=== PATIENT | female | born 1935 | race Caucasian/White ===

== ENCOUNTER 2021-05-11 10:03 | Emergency (ER) | payer MEDICARE ==
[2021-05-11] MEDS ORDERED: Oxymetazoline 0.05% Nasal Spray 30 ML Bottle NAS ONE (10:11)
--- NOTE | 2021-05-11 23:06 | EDM.PDOC ---
ED HPI GENERAL MEDICAL PROBLEM - General Chief Complaint: ENT Problem Stated Complaint: NOSE BLEED Time Seen by Provider: 05/11/21 10:11 Source of Information: Reports: Patient History Limitations: Reports: No Limitations - History of Present Illness INITIAL COMMENTS - FREE TEXT/NARRATIVE: Pt. presents to ER with complaints of epistaxis that started 30 min prior to arrival in ER. She states that for the most part the bleeding was controlled with direct pressure. Denies any trauma to area. No lightheadedness. Pt. is on plavix but is not anticoagulated. Onset: Today Onset Date: 05/11/21 Onset Time: 11:15 Location: Reports: Face - Related Data Allergies Allergy/AdvReac Type Severity Reaction Status Date / Time egg Allergy Nausea and Verified 06/03/17 22:30 Vomiting nitrofurantoin Allergy Cannot Verified 06/03/17 22:30 [From Macrobid] Remember nitrofurantoin Allergy Cannot Verified 06/03/17 22:30 macrocrystalline Remember [From Macrobid] [id number]-[id number] Reductase AdvReac Leg Cramps Verified 06/03/17 22:30 Inhibitor [Tmlrisr-Rau-Sex Reductase Inhibitor] Home Meds: Home Meds Aspirin [Halfprin] 81 mg PO DAILY 05/28/14 [History] Dextran 70/Hypromellose [Artificial Tears Eye Drops] 1 drop EYEBOTH BEDTIME 05/28/14 [History] Fish Oil/Butler-3 Fatty Acids [Fish Oil 1,000 MG] 1 cap PO DAILY 05/28/14 [History] Hydrochlorothiazide/Losartan [Hyzaar 100-25 MG] 1 tab PO DAILY 05/28/14 [History] Insulin Aspart [NovoLOG] 10 units SQ KAIA 05/28/14 [History] Insulin Aspart [NovoLOG] 15 units SQ QPM 05/28/14 [History] Insulin Glargine,Hum.Rec.Anlog [Lantus Solostar] 20 units SQ DAILY 05/28/14 [History] Lansoprazole [Prevacid] 15 mg PO DAILY 05/28/14 [History] Multivitamin with Minerals [Multiple Vitamin] 1 tab PO DAILY 05/28/14 [History] Sertraline [Zoloft] 50 mg PO DAILY 05/28/14 [History] Simvastatin [Zocor] 10 mg PO BEDTIME 11/19/14 [History] Acetaminophen [Pain & Fever] 500 mg PO BID 06/03/17 [History] Diclofenac Sodium [Voltaren 1% Gel] 4 gm TOP QID 06/03/17 [History] dilTIAZem HCL [Cardizem Cd] 300 mg PO DAILY 06/03/17 [History] Past Medical History Cardiovascular History: Reports: High Cholesterol, Hypertension Psychiatric History: Reports: Depression Endocrine/Metabolic History: Reports: Diabetes, Type I Social & Family History - Family History Family Medical History: No Pertinent Family History - Tobacco Use Tobacco Use Status *Q: Never Tobacco User - Recreational Drug Use Recreational Drug Use: No ED ROS GENERAL - Review of Systems Review Of Systems: See Below Constitutional: Reports: No Symptoms HEENT: Reports: Nosebleed Respiratory: Reports: No Symptoms Cardiovascular: Reports: No Symptoms Endocrine: Reports: No Symptoms GI/Abdominal: Reports: No Symptoms : Reports: No Symptoms Musculoskeletal: Reports: No Symptoms Skin: Reports: No Symptoms Neurological: Reports: No Symptoms Psychiatric: Reports: No Symptoms Hematologic/Lymphatic: Reports: No Symptoms Immunologic: Reports: No Symptoms ED EXAM, GENERAL - Physical Exam Exam: See Below Exam Limited By: No Limitations General Appearance: Alert, WD/WN, No Apparent Distress Eye Exam: Bilateral Eye: EOMI, PERRL Nose: Other (active bleeding from R nare) Throat/Mouth: Normal Inspection, Normal Lips, Normal Teeth, Normal Gums, Normal Oropharynx, Normal Voice, No Airway Compromise Course - Orders/Labs/Meds Meds: Medications Discontinued Medications Generic Name Dose Route Start Last Admin Trade Name Freq PRN Reason Stop Dose Admin Oxymetazoline HCl 1 ml 05/11/21 10:11 05/11/21 12:07 Oxymetazoline 0.05% Nasal [place] 30 Ml Bottle DAVE 05/11/21 10:12 3 spray ONETIME ONE Administration - Re-Assessments/Exams Free Text/Narrative Re-Assessment/Exam: Afrin instilled in L nare. Area of active bleeding identified and was cauterized with silver nitrate. Nare was packed with 1/4 in. gauze packing. Pt. observed for an hour and did not have any more active bleeding. Pt. wished to be discharged. Departure - Departure Time of Disposition: 12:15 Disposition: Home, Self-Care 01 Clinical Impression: Epistaxis - Discharge Information Instructions: Nosebleed, Adult, [id number] Referrals: PCP,Not In Area [Primary Care Provider] - Forms: ED Department Discharge Additional Instructions: Remove packing from nose on . It will be normal to experience some oozing from the packing, since the packing was saturated with nasal spray. Return if you notice heavy bleeding, or if you feel bleeding in the back of your throat that doesn't stop. Sepsis Event Note (ED) - Evaluation Sepsis Screening Result: No Definite Risk - Problem List Review Problem List Initiated/Reviewed/Updated: Yes - Assessment/Plan Plan: Pt. was discharged. Packing will be removed on . Return if fever, chills, or recurrent bleeding. Call if any questions.
== END 2021-05-11 11:59 | disposition home or self-care (01) ==
LOC: VM.ED 10:03
DX: R04.0 Epistaxis (principal); E78.00 Pure hypercholesterolemia, unspecified; I10 Essential (primary) hypertension; E10.9 Type 1 diabetes mellitus without complications; Z79.899 Other long term (current) drug therapy; Z79.82 Long term (current) use of aspirin; Z91.012 Allergy to eggs; Z88.1 Allergy status to other antibiotic agents; Z88.8 Allergy status to other drugs, medicaments and biological substances
CPT/HCPCS: 30901; 30903; 99283; 99283-25; A9270-GY

== ENCOUNTER 2024-04-30 11:59 | Emergency (ER) | payer MEDICARE | END 2024-04-30 16:41 | disposition home or self-care (01) | LOC: VM.ED 11:59 | DX: S82.832A Other fracture of upper and lower end of left fibula, initial encounter for closed fracture (principal); I10 Essential (primary) hypertension; E10.9 Type 1 diabetes mellitus without complications; Z79.82 Long term (current) use of aspirin; Z79.4 Long term (current) use of insulin; Z79.899 Other long term (current) drug therapy; Z88.9 Allergy status to unspecified drugs, medicaments and biological substances; Z91.012 Allergy to eggs; Z88.1 Allergy status to other antibiotic agents; Z88.8 Allergy status to other drugs, medicaments and biological substances; W19.XXXA Unspecified fall, initial encounter | CPT/HCPCS: 73610-LT; 99283; 99284 ==

== ENCOUNTER 2024-05-28 23:41 | Emergency (ER) | payer MEDICARE ==
[2024-05-29 00:18] LABS: BASOPHILS PERCENT AUTO 0.2 % (0.2-1.2); EOSINOPHILS ABSOLUTE AUTO 0.2 x10^3/uL (0.0-0.5); HEMATOCRIT 23.9 % (33.0-47.0); IMMATURE GRAN ABSOLUTE AUTO 0.01 x10^3/uL (0.00-0.07); LYMPHOCYTES ABSOLUTE AUTO 7.5 x10^3/uL (1.0-4.8); LYMPHOCYTES PERCENT AUTO 64.3 % (25.0-50.0); MEAN CORPUSCULAR HEMOGLOBIN 19.3 pg (26.0-32.0); MEAN CORPUSCULAR HGB CONC 27.6 g/dL (32.0-36.0); MEAN CORPUSCULAR VOLUME 69.9 fL (78.0-93.0); MONOCYTES ABSOLUTE AUTO 0.7 x10^3/uL (0.0-0.8); MONOCYTES PERCENT AUTO 5.6 % (2.0-11.0); NEUTROPHILS ABSOLUTE AUTO 3.2 x10^3/uL (1.8-7.7); NEUTROPHILS PERCENT AUTO 27.8 % (50.0-80.0); PLATELET COUNT,PLT 317 x10^3/uL (130-400); RED BLOOD CELL COUNT 3.42 x10^6/uL (4.00-5.50)
[2024-05-29 00:21] LABS: BLOOD UREA NITROGEN,BUN 13 mg/dL (7-18); CALCIUM 9.3 mg/dL (8.5-10.1); CARBON DIOXIDE,CO2 30 mmol/L (21-32); CHLORIDE,CL 102 mmol/L (98-107); CREATININE 1.1 mg/dL (0.55-1.02); GLUCOSE RANDOM 109 mg/dL (70-99); SODIUM,NA 138 mmol/L (136-145)
[2024-05-29 00:22] LABS: HEMOGLOBIN 6.6 g/dL (12.0-16.0)
[2024-05-29 00:23] LABS: WHITE BLOOD CELL COUNT,WBC 11.6 x10^3/uL (4.0-10.0)
[2024-05-29 00:26] LABS: ESTIMATED GFR 48 mL/min (>=60)
== END 2024-05-29 01:15 ==
LOC: VM.ED 23:41
DX: D64.9 Anemia, unspecified (principal); I10 Essential (primary) hypertension; E10.9 Type 1 diabetes mellitus without complications; Z79.82 Long term (current) use of aspirin; Z79.1 Long term (current) use of non-steroidal anti-inflammatories (NSAID); Z79.4 Long term (current) use of insulin; Z79.899 Other long term (current) drug therapy; Z88.8 Allergy status to other drugs, medicaments and biological substances; Z91.012 Allergy to eggs
CPT/HCPCS: 36415; 80048; 85025; 86850; 86900; 86901; 99283; 99284

== ENCOUNTER 2024-09-28 10:05 | Inpatient (IN) | payer MEDICARE ==
[2024-09-28] MEDS: Labetalol 20 MG/4 ML Syringe IVPUSH ONE ×3 (10:35→21:56)
[2024-09-28 10:36] LABS: BASOPHILS PERCENT AUTO 0.1 % (0.2-1.2); EOSINOPHILS ABSOLUTE AUTO 0.1 x10^3/uL (0.0-0.5); EOSINOPHILS PERCENT AUTO 0.4 % (0.0-4.0); HEMATOCRIT 41.4 % (33.0-47.0); HEMOGLOBIN 13.1 g/dL (12.0-16.0); IMMATURE GRAN ABSOLUTE AUTO 0.01 x10^3/uL (0.00-0.07); LYMPHOCYTES ABSOLUTE AUTO 3.4 x10^3/uL (1.0-4.8); LYMPHOCYTES PERCENT AUTO 27.6 % (25.0-50.0); MEAN CORPUSCULAR HEMOGLOBIN 28.4 pg (26.0-32.0); MEAN CORPUSCULAR HGB CONC 31.6 g/dL (32.0-36.0); MEAN CORPUSCULAR VOLUME 89.8 fL (78.0-93.0); MONOCYTES ABSOLUTE AUTO 0.4 x10^3/uL (0.0-0.8); MONOCYTES PERCENT AUTO 3.4 % (2.0-11.0); NEUTROPHILS ABSOLUTE AUTO 8.4 x10^3/uL (1.8-7.7); NEUTROPHILS PERCENT AUTO 68.4 % (50.0-80.0); PLATELET COUNT,PLT 165 x10^3/uL (130-400); RED BLOOD CELL COUNT 4.61 x10^6/uL (4.00-5.50); WHITE BLOOD CELL COUNT,WBC 12.3 x10^3/uL (4.0-10.0)
[2024-09-28] MEDS ORDERED: Ondansetron 4 MG/2 ML SDV IVPUSH PRN ×2 (10:45→12:23)
[2024-09-28 10:48] LABS: PROTHROMBIN TIME 10.6 SEC (9.6-12.0); PTT,PARTIAL THROMBOPLSTIN TIME 23.6 SEC (23.5-33.2)
[2024-09-28] MEDS: LORazepam 2 MG/ML SDV IVPUSH ONE (10:49)
[2024-09-28] MEDS: Ondansetron 4 MG/2 ML SDV ONE (10:49)
[2024-09-28] MEDS: Morphine 2 MG/ML SYRINGE IVPUSH ONE ×2 (10:50→11:26)
[2024-09-28 10:53] LABS: ALANINE AMINOTRANSFERASE,ALT 25 U/L (14-59); ALBUMIN 3.3 g/dL (3.4-5.0); ALKALINE PHOSPHATASE 127 U/L (46-116); ASPARTATE AMNIOTRANSFERASE,AST 26 U/L (15-37); BILIRUBIN TOTAL 0.4 mg/dL (0.2-1.0); BLOOD UREA NITROGEN,BUN 14 mg/dL (7-18); CALCIUM 9.4 mg/dL (8.5-10.1); CARBON DIOXIDE,CO2 30 mmol/L (21-32); CHLORIDE,CL 101 mmol/L (98-107); CREATININE 0.8 mg/dL (0.55-1.02); GLUCOSE RANDOM 173 mg/dL (70-99); LACTIC ACID 1.5 mmol/L (0.4-2.0); LIPASE 24 U/L (19-71); POTASSIUM,K 3.9 mmol/L (3.5-5.1); SODIUM,NA 139 mmol/L (136-145)
[2024-09-28 10:55] LABS: ANION GAP 11.9 mmol/L (5-15); ESTIMATED GFR 71 mL/min (>=60)
[2024-09-28] MEDS ORDERED: Hypromellose 0.3% Ophth Soln 15 ML Bottle EYEBOTH PRN (12:35)
[2024-09-28] MEDS: Morphine 2 MG/ML SYRINGE IVPUSH PRN (13:37)
[2024-09-28] MEDS: Sodium Chloride 0.9% 10 ML Syringe FLUSH PRN (20:01)
[2024-09-28] MEDS: Ondansetron 8 MG in Sodium Chloride 0.9% 100 ML IV ONE (21:55)
[2024-09-28] MEDS: Tranexamic Acid 1,000 MG in Sodium Chloride 0.9% 100 ML IV ONE (21:56)
[2024-09-29] MEDS: LORazepam 2 MG/ML SDV IV PRN (04:18)
[2024-09-30] MEDS: Glycopyrrolate 0.2 MG/ML 2 ML SDV IVPUSH PRN (05:48)
[2024-09-30] MEDS: Acetaminophen 650 MG Supp RECTAL PRN (05:54)
[2024-09-30] MEDS: Morphine 4 MG/ML Syringe IVPUSH SCH (14:19)
[2024-10-01] MEDS: Atropine 1% Ophth Soln 5 ML Bottle SL PRN (08:01)
== END 2024-10-01 09:20 | disposition expired | DRG 951 ==
LOC: VM.ED 10:05 → VM.MS 11:15
PROVIDERS: ADMIT Nurse Practitioner Family; ATTEND Nurse Practitioner Family
PROC: 5A0935A Assistance with Respiratory Ventilation, Less than 24 Consecutive Hours, High Flow/Velocity Cannula (ICD-10-PCS; principal; 2024-09-30)
DX: Z51.5 Encounter for palliative care (principal); I10 Essential (primary) hypertension; E10.9 Type 1 diabetes mellitus without complications; I61.9 Nontraumatic intracerebral hemorrhage, unspecified; Z66 Do not resuscitate; Z79.1 Long term (current) use of non-steroidal anti-inflammatories (NSAID); E78.00 Pure hypercholesterolemia, unspecified; F32.A Depression, unspecified; Z91.012 Allergy to eggs; K21.9 Gastro-esophageal reflux disease without esophagitis; E11.40 Type 2 diabetes mellitus with diabetic neuropathy, unspecified; I11.0 Hypertensive heart disease with heart failure; I50.9 Heart failure, unspecified; R01.1 Cardiac murmur, unspecified; Z88.8 Allergy status to other drugs, medicaments and biological substances; Z79.82 Long term (current) use of aspirin; Z79.51 Long term (current) use of inhaled steroids; Z79.899 Other long term (current) drug therapy; Z79.52 Long term (current) use of systemic steroids; Z79.02 Long term (current) use of antithrombotics/antiplatelets; Z79.4 Long term (current) use of insulin
CPT/HCPCS: 36415; 70450; 71045; 80053; 83605; 83690; 84484; 85025; 85610; 85730; 87040; 93010; 94760; 99284; A9270-GY; J1920; J2060; J2270; J2405; J3490